=== PATIENT | male | born 2005 | race Caucasian/White ===

== ENCOUNTER 2025-06-19 18:46 | Emergency (ER) | payer MEDICAID, SELFPAY ==
[2025-06-19 18:49] VITALS: BP 121/69
--- NOTE | 2025-06-19 19:00 | ED.GENMED ---
History of Present Illness
General
Chief Complaint: Foreign Body Removal
Source: patient
Exam Limitations: none
Time Seen by Provider: 06/19/25 18:56
History of Present Illness
History of Present Illness:
20-year-old male from [facility] presents with silicone earbud piece stuck in the left ear. No other complaints
Phy Exam
Physical Exam
Physical Exam:
General: Well-appearing male no acute respiratory distress
HEENT normal cephalic bilateral ear canals within normal limits, please note there was a silicone earbud noted in the left external auditory canal that was removed by nursing staff with a pair of alligator forceps.
Course
Vital Signs
Initial and Last Documented VS:
Initial Vital Signs
Temp Pulse Resp BP Pulse Ox
98 F 68 16 121/69 98
06/19/25 18:49 06/19/25 18:49 06/19/25 18:49 06/19/25 18:49 06/19/25 18:49
Last Documented Vital Signs
Temp Pulse Resp BP Pulse Ox
98 F 68 16 121/69 98
06/19/25 18:49 06/19/25 18:49 06/19/25 18:49 06/19/25 18:49 06/19/25 18:49
MDM/Problems Addressed
Differential Diagnosis Includes:
Foreign body removed with a pair of alligator forceps by nursing staff. Ear canal looks well otherwise TM normal and intact. Stable for discharge
*Pulse Oximetry
SaO2: 98
Oxygen Mode of Delivery: Room air
Patient hypoxic: no
*Critical Care Note
Total Time (30-74mins, 75-104mins- exclusive of procedures): Not Applicable
ED Attending Note
-
Portions of this chart may have been created with voice recognition software.� Occasional wrong word or��sound alike� substitutions may have occurred due to the inherent limitations of voice recognition software.
Discharge Plan
Departure
Patient Disposition: Home (Routine Discharge)
Date of Disposition: 06/19/25
Time of Disposition: 19:01
Patient with high blood pressure during this ER visit?: No
Discharge Problem:
Ear foreign body
Activity Restrictions/Additional Instructions:
Return if needed
Discharge Date and Time
Print Language: TANZANIAN
== END 2025-06-19 19:17 | disposition home or self-care (01) ==
LOC: EMR 18:46
PROVIDERS: EMERGENCY PHYSICIAN Emergency Medicine; FAMILY PHYSICIAN Psychiatry & Neurology Child & Adolescent Psychiatry
DX: T16.2XXA Foreign body in left ear, initial encounter (principal); W44.G1XA Audio device entering into or through a natural orifice, initial encounter
CPT/HCPCS: 69200; 99282